=== PATIENT | female | born 1990 | race Caucasian/White ===

== ENCOUNTER 2017-06-29 02:52 | Emergency (ER) | payer SELFPAY ==
--- NOTE | 2017-06-29 04:37 | ER Document Report ---
ED GI/ - General Chief Complaint: Abdominal Pain Stated Complaint: ABDOMINAL PAIN Time Seen by Provider: 06/29/17 04:01 Notes: 26-year-old female to the emergency department chief complaint of abdominal pain. Patient states that she has been having a lot of foul discharge from her vagina. Having some lower pelvic pain radiating up into her right upper quadrant with right-sided chest pain. Hurts to take a deep breath. Intermittent chills. No obvious fevers. States that her boyfriend has chlamydia and she has not gotten checked yet. - HPI Patient complains to provider of: Abdominal pain, Vaginal discharge Past Medical History - General Information source: Patient - Social History Smoking Status: Current Every Day Smoker Cigarette use (# per day): Yes Frequency of alcohol use: Occasional Drug Abuse: None Lives with: Alone Family History: Reviewed & Not Pertinent Review of Systems - Review of Systems Constitutional: Chills. denies: Fever, Malaise, Weakness EENT: No symptoms reported Cardiovascular: Chest pain. denies: Syncope, Dizziness Respiratory: Hurts to breathe. denies: Short of breath, Wheezing Gastrointestinal: Abdominal pain, Nausea Genitourinary: Flank pain. denies: Burning, Dysuria Female Genitourinary: Irregular period, Vaginal discharge, Vaginal bleeding, Vaginal odor Musculoskeletal: Back pain. denies: Joint pain, Muscle pain, Muscle stiffness Skin: denies: Dryness, Lesions, Lumps, Rash Hematologic/Lymphatic: denies: Anemia, Easy bleeding, Easy bruising Neurological/Psychological: denies: Confusion, Weakness, Numbness Physical Exam - Vital signs Vitals: Temp Pulse Resp BP Pulse Ox 98.6 F 123 H 18 126/77 H 98 06/29/17 03:10 06/29/17 03:10 06/29/17 03:10 06/29/17 03:10 06/29/17 03:10 Interpretation: Normal - General General appearance: Appears well, Alert - HEENT Head: Normocephalic, Atraumatic Eyes: Normal Pupils: PERRL - Respiratory Respiratory status: No respiratory distress Chest status: Nontender Breath sounds: Normal Chest palpation: Normal - Cardiovascular Rhythm: Regular Heart sounds: Normal auscultation Murmur: No - Abdominal Inspection: Normal Distension: No distension Bowel sounds: Normal Tenderness: Nontender Organomegaly: No organomegaly - Genitourinary External exam: Normal Speculum exam: Vaginal discharge. No: Vaginal lacerations Vaginal bleeding: Mild Bimanuel exam: Cervical motion tender, Adnexal tenderness - Back Back: Normal, Nontender - Extremities General upper extremity: Normal inspection, Nontender, Normal color, Normal ROM , Normal temperature General lower extremity: Normal inspection, Nontender, Normal color, Normal ROM , Normal temperature, Normal weight bearing. No: Sandee's sign - Neurological Neuro grossly intact: Yes Cognition: Normal Orientation: AAOx4 [place] Coma Scale Eye Opening: Spontaneous [place] Coma Scale Verbal: Oriented [place] Coma Scale Motor: Obeys Commands [place] Coma Scale Total: 15 Speech: Normal Motor strength normal: LUE, RUE, LLE, RLE Sensory: Normal - Psychological Associated symptoms: Normal affect, Normal mood - Skin Skin Temperature: Warm Skin Moisture: Dry Skin Color: Normal Course - Re-evaluation Re-evalutation: 06/29/17 05:07 Based on patient's reported exposure to STDs and her tenderness there is some concern for PID with Mohini Escobar. Will order ultrasound, chest x-ray, labs. Will treat at this time for PID. May need to do ultrasound as well to rule out gallbladder 06/29/17 06:49 No evidence of acute pathology on chest x-ray or ultrasound. Treating at this time for STD. Patient feeling better. Will continue on outpatient treatment. 06/29/17 06:51 Laboratory 06/29/17 06/29/17 06/29/17 04:41 04:55 05:11 WBC 10.7 H RBC 4.30 Hgb 11.2 L Hct 34.5 L MCV 80 MCH 26.2 L MCHC 32.6 RDW 20.3 H Plt Count 329 Seg Neutrophils % 74.1 Lymphocytes % 12.4 L Monocytes % 10.9 Eosinophils % 2.1 Basophils % 0.5 Absolute Neutrophils 7.9 Absolute Lymphocytes 1.3 Absolute Monocytes 1.2 Absolute Eosinophils 0.2 Absolute Basophils 0.1 Sodium Potassium Chloride Carbon Dioxide Anion Gap BUN Creatinine Est GFR ( Amer) Est GFR (Non-Af Amer) Glucose Calcium Total Bilirubin Direct Bilirubin Neonat Total Bilirubin Neonat Direct Bilirubin Neonat Indirect Bili AST ALT Alkaline Phosphatase Total Protein Albumin Lipase Urine Color YELLOW Urine Appearance CLEAR Urine pH 5.0 Ur Specific [place] 1.017 Urine Protein NEGATIVE Urine Glucose (UA) NEGATIVE Urine Ketones NEGATIVE Urine Blood MODERATE H Urine Nitrite NEGATIVE Urine Bilirubin NEGATIVE Urine Urobilinogen 2.0 H Ur Leukocyte Esterase TRACE H Urine WBC (Auto) 5 Urine RBC (Auto) 0 Squamous Epi Cells Auto 1 Urine Mucus (Auto) FEW Urine Ascorbic Acid NEGATIVE Urine HCG, Qual NEGATIVE Bacteria (Wet Prep) 3+ BACTERIA SEEN Trichomonas (Wet Prep) NO TRICHOMONAS SEEN Vaginal WBC 3+ WBCS SEEN Vaginal RBC FEW RBCS SEEN Vaginal Yeast NO YEAST SEEN 06/29/17 05:11 WBC RBC Hgb Hct MCV MCH MCHC RDW Plt Count Seg Neutrophils % Lymphocytes % Monocytes % Eosinophils % Basophils % Absolute Neutrophils Absolute Lymphocytes Absolute Monocytes Absolute Eosinophils Absolute Basophils Sodium Cancelled Potassium Cancelled Chloride Cancelled Carbon Dioxide Cancelled Anion Gap Cancelled BUN Cancelled Creatinine Cancelled Est GFR ( Amer) Cancelled Est GFR (Non-Af Amer) Cancelled Glucose Cancelled Calcium Cancelled Total Bilirubin Cancelled Direct Bilirubin Cancelled Neonat Total Bilirubin Cancelled Neonat Direct Bilirubin Cancelled Neonat Indirect Bili Cancelled AST Cancelled ALT Cancelled Alkaline Phosphatase Cancelled Total Protein Cancelled Albumin Cancelled Lipase Cancelled Urine Color Urine Appearance Urine pH Ur Specific [place] Urine Protein Urine Glucose (UA) Urine Ketones Urine Blood Urine Nitrite Urine Bilirubin Urine Urobilinogen Ur Leukocyte Esterase Urine WBC (Auto) Urine RBC (Auto) Squamous Epi Cells Auto Urine Mucus (Auto) Urine Ascorbic Acid Urine HCG, Qual Bacteria (Wet Prep) Trichomonas (Wet Prep) Vaginal WBC Vaginal RBC Vaginal Yeast Abdomen Ultrasound 06/29/17 05:02 IMPRESSION: 1. The gallbladder is contracted however no gallstones are identified on this study. Chest X-Ray 06/29/17 05:02 IMPRESSION: 1. No acute pulmonary process identified. 06/29/17 07:17 Both gonorrhea and Chlamydia have been detected. Patient is not septic. Slightly elevated WBC count. Still a little tachycardic but much better than before. Patient initially presented heart rate was 125. Now at 105. Patient stated her pain is much better. Will have her drink a few more cups of water and anticipate discharge. Follow-up with [facility]. 06/29/17 07:23 - Vital Signs Vital signs: Temp Pulse Resp BP Pulse Ox 98.6 F 123 H 18 126/77 H 98 06/29/17 03:10 06/29/17 03:10 06/29/17 03:10 06/29/17 03:10 06/29/17 03:10 - Laboratory Result Diagrams: 06/29/17 05:11 06/29/17 06:25 Laboratory results interpreted by me: 06/29/17 06/29/17 06/29/17 04:41 04:55 05:11 WBC 10.7 H Hgb 11.2 L Hct 34.5 L MCH 26.2 L RDW 20.3 H Lymphocytes % 12.4 L BUN Total Bilirubin Total Protein Albumin Urine Blood MODERATE H Urine Urobilinogen 2.0 H Ur Leukocyte Esterase TRACE H Chlamydia DNA (PCR) DETECTED H N.gonorrhoeae DNA (PCR) DETECTED H 06/29/17 06:25 WBC Hgb Hct MCH RDW Lymphocytes % BUN 4 L Total Bilirubin < 0.1 L Total Protein 6.1 L Albumin 3.1 L Urine Blood Urine Urobilinogen Ur Leukocyte Esterase Chlamydia DNA (PCR) N.gonorrhoeae DNA (PCR) - EKG Interpretation by Vt EKG shows normal: Rogers, Intervals, QRS Complexes, ST-T Waves Rate: Tachycardia Discharge - Discharge Clinical Impression: Cervicitis, PID (acute pelvic inflammatory disease) Condition: Good Disposition: HOME, SELF-CARE Instructions: Observation for Appendicitis ([facility]), Pelvic Inflammatory Disease ( [facility]), Gonorrhea ([facility]), Chlamydia ([facility]) Prescriptions: Doxycycline Hyclate 100 mg PO BID 14 Days #28 capsule Ibuprofen [Motrin 800 mg Tablet] 800 mg PO Q8H PRN #30 tab PRN Reason: Referrals: RONALDO SALAZAR MD [ACTIVE STAFF] - Follow up in 3-5 days
[2017-06-29] MEDS ORDERED: CEFTRIAXONE INJ 250 MG VIAL IM ONE (05:03)
[2017-06-29] MEDS ORDERED: DOXYCYCLINE HYCLATE 100 MG TABLET PO ONE (05:03)
[2017-06-29] MEDS ORDERED: HYDROCODONE/ACETAMINOPHEN 5-325 MG TABLET PO ONE (05:04)
[2017-06-29] MEDS ORDERED: IBUPROFEN 800 MG TABLET PO ONE (05:04)
[2017-06-29 05:19] LABS: APPEARANCE,URINE CLEAR; BILIRUBIN,URINE NEGATIVE (NEGATIVE); COLOR,URINE YELLOW; GLUCOSE, URINE NEGATIVE (NEGATIVE); KETONES,URINE NEGATIVE (NEGATIVE); LEUKOCYTE ESTERASE,URINE TRACE (NEGATIVE); NITRITE,URINE NEGATIVE (NEGATIVE); PROTEIN,URINE NEGATIVE (NEGATIVE); URINE SPECIFIC GRAVITY 1.017
[2017-06-29 05:28] LABS: ABSOLUTE BASOPHILS # (AUTO) 0.1 10^3/uL (0.0-0.2); ABSOLUTE EOSINOPHILS # (AUTO) 0.2 10^3/uL (0.0-0.6); ABSOLUTE LYMPHOCYTES (AUTO) 1.3 10^3/uL (0.5-4.7); ABSOLUTE MONOCYTES (AUTO) 1.2 10^3/uL (0.1-1.4); ABSOLUTE NEUT (AUTO) 7.9 10^3/uL (1.7-8.2); BASOPHILS % (AUTO) 0.5 % (0-2); EOSINOPHILS % (AUTO) 2.1 % (0-6); HEMATOCRIT 34.5 % (36.0-47.0); HEMOGLOBIN 11.2 g/dL (12.0-15.5); LYMPHOCYTES % (AUTO) 12.4 % (13-45); MEAN CORPUSCULAR HEMOGLOBIN 26.2 pg (27.0-33.4); MEAN CORPUSCULAR HGB CONC 32.6 g/dL (32.0-36.0); MEAN CORPUSCULAR VOLUME 80 fl (80-97); MONOCYTES % (AUTO) 10.9 % (3-13); PLATELET COUNT 329 10^3/uL (150-450); RED CELL DISTRIBUTION WIDTH 20.3 % (11.5-14.0); SEGMENTED NEUTROPHILS % (AUTO) 74.1 % (42-78); TOTAL CELLS COUNTED % (AUTO) 100 %; WHITE BLOOD COUNT 10.7 10^3/uL (4.0-10.5)
[2017-06-29] MEDS ORDERED: LIDOCAINE 1% INJ-PF (10 MG/ML) 30 ML SDV INJ ONE (05:28)
[2017-06-29 05:30] LABS: BACTERIA (WET MOUNT) 3+ BACTERIA SEEN; RBCS (WET MOUNT) FEW RBCS SEEN; T.VAGINALIS (WET MOUNT) NO TRICHOMONAS SEEN; WBCS (WET MOUNT) 3+ WBCS SEEN; YEAST (WET MOUNT) NO YEAST SEEN
--- NOTE | 2017-06-29 06:28 | RADIOLOGY REPORT (SQ) ---
EXAM DESCRIPTION: U/S ABDOMEN LIMITED W/O DOP CLINICAL HISTORY: ruq pain COMPARISON: None. TECHNIQUE: Real-time sonographic images of the right upper abdomen were obtained using a curved multihertz transducer. FINDINGS: Pancreas: The visualized portions of the pancreas are unremarkable. Vascular: The visualized portions of the aorta and IVC are unremarkable. Liver: The liver has normal contour and echogenicity. Hepatopedal flow in the portal vein. The common bile duct measures 0.2 cm. Gallbladder: No gallstones identified. Normal gallbladder wall thickness. The gallbladder is contracted. Right Kidney: The right kidney measures 1.4 cm in length. No hydronephrosis, solid renal mass, or shadowing calculi. IMPRESSION: 1. The gallbladder is contracted however no gallstones are identified on this study.
--- NOTE | 2017-06-29 06:42 | RADIOLOGY REPORT (SQ) ---
EXAM DESCRIPTION: CHEST 2 VIEWS CLINICAL HISTORY: right chest pain COMPARISON: None. FINDINGS: Frontal and lateral views of the chest. The cardiomediastinal silhouette has normal size and contour. No consolidation, pneumothorax, or pleural effusion. No displaced rib fractures identified. Leads overlie the chest. Upper abdominal soft tissues are unremarkable. IMPRESSION: 1. No acute pulmonary process identified.
[2017-06-29 07:02] LABS: CHLAM PCR DETECTED (NOT DETECT); GON PCR DETECTED (NOT DETECT)
[2017-06-29 07:12] LABS: ALANINE AMINOTRANSFERASE 28 U/L (9-52); ALBUMIN 3.1 g/dL (3.5-5.0); ALKALINE PHOSPHATASE 75 U/L (38-126); ANION GAP 13 (5-19); ASPARTATE AMINO TRANSFERASE 20 U/L (14-36); BLOOD UREA NITROGEN 4 mg/dL (7-20); CALCIUM 8.4 mg/dL (8.4-10.2); CARBON DIOXIDE 23 mmol/L (22-30); CHLORIDE 106 mmol/L (98-107); GLUCOSE 96 mg/dL (75-110); LIPASE 51.3 U/L (23-300); POTASSIUM 3.7 mmol/L (3.6-5.0); TOTAL PROTEIN 6.1 g/dL (6.3-8.2)
[2017-06-29 07:19] LABS: BILIRUBIN,TOTAL < 0.1 mg/dL (0.2-1.3)
[2017-06-29 08:19] VITALS: BP 93/68
--- NOTE | 2017-06-29 23:38 | EKG REPORT ---
SEVERITY:- OTHERWISE NORMAL ECG - SINUS TACHYCARDIA : Confirmed by: Renny Diallo 29-Jun-2017 23:37:26
== END 2017-06-29 08:29 | disposition home or self-care (01) ==
LOC: ER 02:52
DX: N72 Inflammatory disease of cervix uteri (principal); N73.0 Acute parametritis and pelvic cellulitis; R00.0 Tachycardia, unspecified; R10.9 Unspecified abdominal pain; F17.210 Nicotine dependence, cigarettes, uncomplicated
CPT/HCPCS: 93005; 99284; 96372; 36415; 87210; 83690; 85025; 81025; 80053; 81001; 87491; 87591; 71046; 76705; 93010; J3490; J0696